=== PATIENT | female | born 2000 | race Caucasian/White ===

== ENCOUNTER 2021-02-10 10:20 | Emergency (ER) | payer OTHER, SELFPAY ==
[2021-02-10 10:31] VITALS: BP 159/91; PULSE 99; RESP 16; TEMP 37.1; O2SAT 97; BMI 41.5
--- NOTE | 2021-02-10 10:40 | [facility].EDGENADL ---
ED Disposition Clinical Impression: Needle stick injury of finger Disposition: Home, Self-Care Condition on Discharge: Good Instructions: DI for Puncture Wound Referrals: Blayne Guadalupe [Primary Care Provider] - - Critical Care Critical Care Time: No Attestation: On 02/10/21, the high probability of a clinically significant, sudden or life threatening deterioration of the following system(s) required my full and direct attention, intervention and personal management. The time I documented below is in addition to time spent performing reported procedures but includes the following listed in this critical care notation. Medical Decision Making - Medical Records Medical records reviewed: Yes: I reviewed the patient's medical records. - Emmanuel Inquiry Pt receiving controlled substance: No Vital Signs: 02/10/21 10:31 Temperature 98.8 F Temperature Source Oral Pulse Rate [Radial] 99 H Respiratory Rate 16 Blood Pressure [Right Arm] 159/91 H Blood Pressure Mean [Right Arm] 113 Blood Pressure Position [Right Arm] Sitting 02 Sat by Pulse Oximetry 97 Oxygen Delivery Method Room Air Medical Decision Narrative: 20-year-old female presented to the emergency department after being involved in a needlestick injury. We were able to locate the source of the needlestick and laboratory studies will be obtained. Patient is up-to-date on tetanus. We will obtain basic laboratory studies regarding needlestick injury. I did have a long discussion with patient regarding the benefits and risks of prophylaxis. The patient is electing to decline prophylaxis at this time and will follow up on results. Patient was cautioned about the risks of delaying prophylaxis treatment, verbalized understanding. Patient is to follow-up with PCP in 24 hours or medical records to obtain results. Given strict return precautions. Verbalized understanding. General Adult HPI - General Chief complaint: Skin/Abscess/Foreign Body Stated complaint: needle stick Time Seen by Provider: 02/10/21 10:40 Mode of Arrival: Ambulatory Limitations: No Limitations Description of Symptoms (Recalled from ER Triage Doc. by RN): TO ED AMBULATORY PT LAB EMPLOYEE WITH NEEDLE STICK LT INDEX FINGER AFTER DRAWING BLOOD ON PATIENT. - History of Present Illness HPI narrative: 20-year-old female presented to the emergency department after an accidental needlestick. The patient was drawing someone's blood when she accidentally poked herself in the finger with a butterfly needle. There was minimal blood at the time. Patient has no history of blood-borne pathogens. Unknown status of source patient. Other injuries were sustained. Patient up-to-date on tetanus immunization. No active bleeding at this time. - Related Data Home Medications Medication Instructions Recorded Confirmed No Known Home Medications 02/10/21 02/10/21 Allergies Allergy/AdvReac Type Severity Reaction Status Date / Time No Known Allergies Allergy Verified 02/10/21 10:35 [facility] History - Hepatitis A Screen Drug use history?: No High risk sexual behaviors?: No History of sexually transmitted infection?: No Currently employed?: No Childcare worker?: No Do you have indoor plumbing?: Yes Do you have electricity?: Yes Attestation statement:: This patient has been screened for Hepatitis A risk factors. I have reviewed the patient's past medical history: Yes ROS Obtained: Yes All systems reviewed & no additional complaints - Cardiovascular Cardiovascular: Denies chest pain - Respiratory Respiratory: Denies dyspnea - Gastrointestinal Gastrointestingal: Denies: vomiting - Musculoskeletal Musculoskeletal: Denies joint pain - Integumentary/Breasts Comments: needle stick - Neurologic Neurologic: Denies headache(s) Physical Exam - General General appearance: alert, in no apparent distress - Respiratory Respiratory exam: Present: normal lung sounds bilatera
[2021-02-10 11:40] LABS: Chloride 104 mmol/L (98-107); Sodium 137 mmol/L (136-145)
[2021-02-10 11:41] LABS: Potassium 4.1 mmoL/L (3.5-5.1)
[2021-02-10 11:43] LABS: Alanine Aminotransferase 24 U/L (12-78); Alkaline Phosphatase 87 U/L (38-126); Anion Gap 12.1 mEq/L (5-15); Aspartate Amino Transferase 32 U/L (14-36); Bilirubin,Direct 0.1 mg/dl (0.0-0.4); Bilirubin,Indirect 0.3 mg/dL (0.0-0.9); Bilirubin,Total 0.4 mg/dl (0.2-1.3); Bilirubin,Unconjugated 0.2 mg/dL (0.0-1.1); Blood Urea Nitrogen 10 mg/dl (7-17); Calcium 9.3 mg/dl (8.4-10.2); Carbon Dioxide 25 mmol/L (22.0-30.0); Creatinine Clearance Estimated 116 mL/min (50-200); Estimated Glomerular Filt Rate 108 ml/min (>60); GFR (African American) 130 ML/MIN (>60); Glucose 107 mg/dl (74-100)
[2021-02-10 11:44] LABS: Albumin Level 4.4 g/dl (3.5-5.0); Albumin/Globulin Ratio 1.5 (1.1-1.8); Basophils # 0.1 K/mm3 (0-0.2); Basophils % 0.6 % (0.1-2.0); Eosinophils # 0.1 K/mm3 (0.0-0.4); Eosinophils % 1.4 % (0.1-12.0); Hemoglobin 13.7 g/dL (12.2-16.2); Lymphocytes # 2.1 K/mm3 (0.7-4.5); Lymphocytes % 25.2 % (10-50); Mean Corpuscular HGB Conc 32.5 g/dL (31.8-35.4); Mean Corpuscular Volume 79.9 fl (81-99); Monocytes # 0.3 K/mm3 (0.1-1.0); Monocytes % 3.8 % (1.7-9.3); Neutrophils # 5.7 K/mm3 (1.8-7.8); Neutrophils % 68.9 % (37.0-80.0); Platelet Count 302 K/mm3 (142-424); Red Blood Count 5.26 M/mm3 (4.20-5.40); Red Cell Distribution Width 13.1 % (11.5-17.5); Total Protein,Serum 7.4 g/dl (6.3-8.2); White Blood Count 8.3 K/mm3 (4.5-13.0)
[2021-02-10 11:49] LABS: Activated Partial Thrombo Time 27.8 seconds (22.8-30.6); INR 0.91 (0.9-1.1); Prothrombin Time 10.8 seconds (10.1-12.5)
[2021-02-10 12:24] VITALS: BP 132/74; PULSE 92; RESP 18; TEMP 36.6; O2SAT 98
[2021-02-11 13:39] LABS: HIV Screen 4th Generation wRfx Non Reactive (Non Reactive); Hepatitis B Surf Ab Quant 9.5 mIU/mL (Immunity>9.9); Hepatitis B Surface Antigen Negative (Negative); Hepatitis C Antibody <0.1 s/co ratio (0.0-0.9)
== END 2021-02-10 12:27 | disposition home or self-care (01) ==
PROVIDERS: Emergency Provider Emergency Medicine; PCP Pediatrics
DX: S61.231A Puncture wound without foreign body of left index finger without damage to nail, initial encounter (principal); W22.8XXA Striking against or struck by other objects, initial encounter; Y92.69 Other specified industrial and construction area as the place of occurrence of the external cause; Y99.0 Civilian activity done for income or pay; Z23 Encounter for immunization
CPT/HCPCS: 80053; 80076; 85025; 85610; 85730; 86703; 86706; 87340; 87380; 90471; 90715; 99281; G0432